=== PATIENT | female | born 1975 | race Caucasian/White ===

== ENCOUNTER 2022-04-25 15:01 | Outpatient (RCR) | payer OTHER, SELFPAY | END 2022-06-21 08:55 | disposition home or self-care (01) | PROVIDERS: PCP Family Medicine; Visit Provider Family Medicine | DX: M76.62 Achilles tendinitis, left leg (principal); M76.61 Achilles tendinitis, right leg; M25.572 Pain in left ankle and joints of left foot; Z51.89 Encounter for other specified aftercare | CPT/HCPCS: 97110; 97140 ==

== ENCOUNTER 2023-01-08 10:07 | Observation (INO) | payer OTHER, SELFPAY ==
[2023-01-08] VITALS (37 sets, daily range): BP systolic 118–153; BP diastolic 72–102; PULSE 43–101; RESP 16–18; TEMP 36.6–36.9; O2SAT 94–100; BMI 26.6; BMI 27.3
--- NOTE | 2023-01-08 10:43 | ED_ITS ---
HPI - General Adult General Time Seen by Provider: 10:44 Date Seen: 01/08/23 Chief complaint: High Blood Pressure Stated complaint: High BP Time Seen by Provider: 01/08/23 10:43 Source: patient and RN notes reviewed Mode of arrival: ambulatory Limitations: no limitations History of Present Illness HPI narrative: Patient is a 47-year-old female coming in with sense of a flutter or irregular heartbeat in her chest starting this morning. She went to emergency room yesterday, was started on antibiotics and oxymetazoline own for a sinus infection. She did get prednisone but has not started it. She was blowing out copious nasal secretions, has been feeling ill since the end of November. At some point she had a negative strep, COVID, influenza swab, probably closer to the end of November per her report. She has felt hot and chilled but no documented temperature. She took 1 cefuroxime last night, 2 doses of the oxymetazoline nasal spray yesterday. This morning when she woke up she still was not feeling good, extremely fatigued. She tried to lay back down after calling in to work sick today and felt the strange sensation in her chest. She states she just isn't feeling right, does have some headache with her symptoms. She states no blood work or imaging was done yesterday. She does not drink any excessive caffeine. She states she was told to quit coffee with her sore throat symptoms earlier, will maybe have an occasional diet Mountain Dew. She is hungry right now but notes overall her appetite is down and off. Has been drinking water. Related Data Home Medications Medication Instructions Recorded Confirmed metoprolol tartrate 50 mg tablet 25 mg PO BID 12/10/22 01/08/23 aspirin 81 mg tablet,delayed 81 mg PO DAILY 01/08/23 01/08/23 release (Adult Aspirin Regimen) hydrochlorothiazide 25 mg tablet 25 mg PO DAILY 01/08/23 01/08/23 losartan 50 mg tablet 50 mg PO BID 01/08/23 01/08/23 multivitamin (Daily Multi-Vitamin 1 tab PO DAILY 01/08/23 01/08/23 tablet) Previous Rx's Medication Instructions Recorded cefuroxime axetil 500 mg tablet 500 mg PO BID 10 days #20 tabs 01/07/23 fluticasone propionate 50 1 spray intranasal DAILY #1 g 01/09/23 mcg/actuation nasal spray,suspension nicotine (polacrilex) 2 mg gum 2 mg buccal Q1H PRN #20 ea 01/09/23 sodium chloride 0.65 % nasal spray 1 spray intranasal QID #1 mL 01/09/23 aerosol (Deep Sea Nasal) Allergies Allergy/AdvReac Type Severity Reaction Status Date / Time No Known Drug Allergies Allergy Verified 01/07/23 13:40 Review of Systems Status of ROS: Reports: 10 or more systems reviewed and unremarkable except as noted in History and below [facility] Medical History (Updated 01/09/23 @ 10:10 by Herminia Perez MD) Degenerative disc disease, cervical ?M50.30 - Other cervical disc degeneration, unspecified cervical region (ICD- 10) Essential hypertension ?I10 - Essential (primary) hypertension (ICD-10) Fatty liver ?K76.0 - Fatty (change of) liver, not elsewhere classified (ICD-10) Tobacco use disorder ?F17.200 - Nicotine dependence, unspecified, uncomplicated (ICD-10) Surgical History (Updated 01/08/23 @ 14:14 by Herminia Perez MD) H/O breast augmentation ?Z98.82 - Breast implant status (ICD-10) H/O tubal ligation ?Z98.51 - Tubal ligation status (ICD-10) H/O: hysterectomy ?Z90.710 - Acquired absence of both cervix and uterus (ICD-10) History of appendectomy ?Z90.49 - Acquired absence of other specified parts of digestive tract (ICD- 10) History of section ?Z98.891 - History of uterine scar from previous surgery (ICD-10) History of endometrial ablation ?Z98.890 - Other specified postprocedural states (ICD-10) History of laparoscopic cholecystectomy ?Z90.49 - Acquired absence of other specified parts of digestive tract (ICD- 10) Social History Highest level of school completed/degree received: Associate degree: occupational, technical, vocational program Smoking Status: Current every day smoker Second hand tobacco smoke exposure: No How often do you have a drink containing alcohol: never How often do you have six or more drinks on one occasion: Never AUDIT-C Alcohol total score: 0 Non-prescribed substance use: denies use Caffeine: Yes (limited) service: No Exam Const: Vital Signs, click to edit/add: Vital Signs - 24 hr 01/08/23 10:13 01/08/23 10:30 01/08/23 10:32 Temperature 98.5 F Pulse Rate 68 72 Pulse Rate [Right Pulse Oximeter] 79 Respiratory Rate 18 Blood Pressure 127/80 Blood Pressure [Ri ght Upper Arm] 153/102 H Pulse Oximetry 96 97 98 Oxygen Delivery Me thod Room Air 01/08/23 10:45 01/08/23 11:00 01/08/23 11:03 Temperature Pulse Rate 67 77 78 Pulse Rate [Right Pulse Oximeter] Respiratory Rate Blood Pressure 129/91 H Blood Pressure [Ri ght Upper Arm] Pulse Oximetry 96 98 95 Oxygen Delivery Me thod 01/08/23 11:15 01/08/23 10:52 01/08/23 11:30 Temperature Pulse Rate 70 65 Pulse Rate [Right Pulse Oximeter] Respiratory Rate Blood Pressure Blood Pressure [Ri ght Upper Arm] Pulse Oximetry 98 97 96 Oxygen Delivery Me thod 01/08/23 11:33 01/08/23 11:34 01/08/23 11:46 Temperature Pulse Rate 67 71 62 Pulse Rate [Right Pulse Oximeter] Respiratory Rate Blood Pressure 130/84 Blood Pressure [Ri ght Upper Arm] Pulse Oximetry 97 97 97 Oxygen Delivery Me thod 01/08/23 12:00 01/08/23 12:02 01/08/23 12:15 Temperature Pulse Rate 66 58 L 79 Pulse Rate [Right Pulse Oximeter] Respiratory Rate Blood Pressure 142/72 H Blood Pressure [Ri ght Upper Arm] Pulse Oximetry 98 100 97 Oxygen Delivery Me thod Documenting provider has reviewed patient's vital signs: yes Common normals: no apparent distress, average body habitus, oriented x3, no limitations, healthy appearing and alert General appearance: cooperative, c omfortable, well kempt and well developed Other: Overall this 47-year-old female has love skin, no rash. She is in no distress but just generally looks like she does not feel the best. HENMT: Common normals: normocephalic, head/scalp atraumatic, hearing grossly normal bilaterally, external nose normal, moist oral mucous membranes, oropharynx normal, dentition normal and gingiva normal Head and scalp: normocephalic and atraumatic Nose: external nose normal Eye: Common normals: PERRL, EOMs intact bilaterally, conjunctivae normal and no scleral icterus Conjunctiva: conjunctiva(e) normal Pupil: PERRL Neck & C-Spine: Common normals: full ROM, no lymphadenopathy, supple, no meningeal signs, no JVD and thyroid normal Thyroid: thyroid normal Resp: Common normals: normal respiratory effort, no retractions, no use of accessory muscles and clear to auscultation bilaterally Auscultation: clear to auscultation bilaterally Cardio: Common normals: no JVD, regular rate, regular rhythm, S1 normal heart sound, S2 normal heart sound, no gallops, no clicks and no murmurs Rate: regular rate Rhythm: regular rhythm Heart sounds: S1 normal and S2 normal GI: Common normals: Normal to inspection, nondistended, normoactive bowel sounds present, soft to palpation, non-tender, no hepatosplenomegaly and no masses Palpation: soft and no hepatosplenomegaly Neuro: Common normals: oriented x3 Sensorium/orientation: alert Meningeal signs: no meningeal signs Psych: Appearance: well kempt Course Course Hospital Course: Her initial EKG obtained by nursing staff on arrival is looking reassuring. I see no evidence of any ectopy when I am talking to her but nursing staff did note that they saw some PVCs on the monitor. Will continue her on cardiac monitoring and pulse oximetry. Will get appropriate labs, portable chest x-ray as well as head CT. I do wonder if the oxymetazoline could be contributing to PVCs. Have recommended at this point she refrain from using this further. Any prolonged use of this nasal spray can cause nasal congestion rebound phenomenon. Reevaluation(s) Reevaluation #1: Nursing staff reported to me that patient was complaining of feeling like she was short of breath, having difficulty breathing. Vitals were stable, O2 sats were 100%. I went in to talk to her after that, saw 2 isolated PVCs on the monitor. Then she went into bigeminy for about maybe 3-5 beats looking at the monitor. She was quite symptomatic with it. Made her feel tearful. Reviewed with her the pansinusitis on her head CT. Reviewed the normal inflammatory markers C reactive protein in the normal CBC. Her liver enzymes are mildly elevated with the ALT being higher than the AST. She had 2 drinks last night, maybe some on Friday but states she is not drinking excessively. We will ultrasound her liver. She was in [place] early December, had these respiratory symptoms prior to going there. Has not had any GI her diarrheal illness. Her gallbladder is gone. As for the PVCs, she is on metoprolol. I am not sure if it is the oxymetazoline that did this or if it is general illness. Could try to increase her beta-janee to suppress this for the time being while she treats the sinusitis. If she has ongoing symptoms, outpatient cardiac echo and Holter monitor or ZIO patch would be recommended. Time: 12:24 Reevaluation #2: Reviewed my conversation with the grip wrapper with patient. She understands she needs to have a screening COVID done. She will getting 25 mg immediate release oral metoprolol, have ordered 2 g IV magnesium. Time: 13:21 Consultations Consultation #1: Spoke with Dr. Edwards from [facility] on-call. Reviewed the significant symptomatic burden of bigeminy this patient is having. Her magnesium is normal at 1.7 but low for potential cardiac arrhythmias. He did recommend replacing it. We discussed using oral metoprolol to try to suppress this. If she was continuing to have symptomatic PVCs or bigeminy, call back to Cardiology for further recommendations. He stated they were rarely use antiarrhythmics but sometimes or force 2. We will need to collect a COVID on her. He did recommend getting an echo and hospitalizing patient for treatment. Note the preliminary on her liver is that it is fatty liver. Time: 13:18 Consultation #2: Have reviewed with the hospitalist, she accepts. Time: 13:48 Vital Signs Vital signs: Initial Vital Signs Temperature 98.5 F 01/08/23 10:13 Temperature Source Temporal Artery Scan 01/08/23 10:13 Pulse Rate 79 01/08/23 10:13 Respiratory Rate 18 01/08/23 10:13 Blood Pressure 153/102 H 01/08/23 10:13 Blood Pressure Mean 119 01/08/23 10:13 Blood Pressure Position Sitting 01/08/23 10:13 Pulse Oximetry 96 01/08/23 10:13 Oxygen Delivery Method Room Air 01/08/23 10:13 Vital Signs Temperature 98.5 F 01/08/23 10:13 Pulse Rate 79 01/08/23 10:13 Respiratory Rate 18 01/08/23 10:13 Blood Pressure 153/102 H 01/08/23 10:13 Pulse Oximetry 96 01/08/23 10:13 Oxygen Delivery Method Room Air 01/08/23 10:13 Temperature 97.6 F 01/09/23 07:00 Pulse Rate 62 01/09/23 07:39 Respiratory Rate 16 01/09/23 09:00 Blood Pressure 135/89 01/09/23 07:00 Pulse Oximetry 95 01/09/23 09:00 Oxygen Delivery Method Room Air 01/09/23 09:00 Medical Decision Making Lab Data Labs: Lab Results 01/08/23 01/08/23 01/08/23 Range/Units 10:53 11:21 13:12 WBC 8.13 (4.50-11.00) K/uL RBC 4.19 (4.00-5.20) m/uL Hgb 13.3 (12.0-16.0) gm/dL Hct 38.6 (33.0-51.0) % MCV 92 (80-100) fL MCH 32 (26-34) pg MCHC 35 (32-36) gm/dL RDW Coeff of Adilson 11.8 (11.5-15.5) % Plt Count 248 (140-440) K/uL Neut % (Auto) 58.9 (42.0-72.0) % Lymph % (Auto) 28.7 (20-44) % Glades % (Auto) 10.7 (0.0-11.0) % Eos % (Auto) 1.2 (0.0-7.0) % Baso % (Auto) 0.4 (0.0-3.0) % Neut # (Auto) 4.79 (1.7-7.0) K/uL Lymph # (Auto) 2.33 (0.90-2.90) K/uL Glades # (Auto) 0.90 (0.00-0.90) K/UL Eos # (Auto) 0.10 (0.00-0.50) K/uL Baso # (Auto) 0.03 (0.00-0.30) K/uL ESR 25 H (2-20) mm/hr Sodium 135 (135-149) mmol/L Potassium 4.1 (3.6-5.1) mmol/L Chloride 97 (96-114) mmol/L Carbon Dioxide 32 (20-32) mmol/L BUN 18 (5-24) mg/dL Creatinine 0.8 (0.5-1.5) mg/dL Estimated Creat Clear 76.54 Estimated GFR 90 ml/min Glucose 107 (60-115) mg/dL Hemoglobin A1c 5.44 (0-5.6) % Calcium 9.8 (8.4-10.6) mg/dL Magnesium 1.7 (1.5-2.6) mg/dL Total Bilirubin 1.6 H (0.1-1.5) mg/dL GGT 134 H (8-55) U/L AST 97 H (12-35) U/L ALT 135 H (4-35) U/L Alkaline Phosphatase 73 (40-150) U/L C-Reactive Protein < 0.5 L (0.5-1.0) mg/dL NT-Pro-B Natriuret Pep 48 pg/mL Total Protein 8.5 H (6.0-8.3) g/dL Albumin 4.7 (3.3-5.0) g/dL SARS-CoV-2 (PCR) (Negative) POC Troponin I 0.00 L 0.00 L (0.01-0.04) ng/ml 01/08/23 Range/Units 13:21 WBC (4.50-11.00) K/uL RBC (4.00-5.20) m/uL Hgb (12.0-16.0) gm/dL Hct (33.0-51.0) % MCV (80-100) fL MCH (26-34) pg MCHC (32-36) gm/dL RDW Coeff of Adilson (11.5-15.5) % Plt Count (140-440) K/uL Neut % (Auto) (42.0-72.0) % Lymph % (Auto) (20-44) % Glades % (Auto) (0.0-11.0) % Eos % (Auto) (0.0-7.0) % Baso % (Auto) (0.0-3.0) % Neut # (Auto) (1.7-7.0) K/uL Lymph # (Auto) (0.90-2.90) K/uL Glades # (Auto) (0.00-0.90) K/UL Eos # (Auto) (0.00-0.50) K/uL Baso # (Auto) (0.00-0.30) K/uL ESR (2-20) mm/hr Sodium (135-149) mmol/L Potassium (3.6-5.1) mmol/L Chloride (96-114) mmol/L Carbon Dioxide (20-32) mmol/L BUN (5-24) mg/dL Creatinine (0.5-1.5) mg/dL Estimated Creat Clear Estimated GFR ml/min Glucose (60-115) mg/dL Hemoglobin A1c (0-5.6) % Calcium (8.4-10.6) mg/dL Magnesium (1.5-2.6) mg/dL Total Bilirubin (0.1-1.5) mg/dL GGT (8-55) U/L AST (12-35) U/L ALT (4-35) U/L Alkaline Phosphatase (40-150) U/L C-Reactive Protein (0.5-1.0) mg/dL NT-Pro-B Natriuret Pep pg/mL Total Protein (6.0-8.3) g/dL Albumin (3.3-5.0) g/dL SARS-CoV-2 (PCR) Negative SARS-CoV-2 (Negative) POC Troponin I (0.01-0.04) ng/ml Imaging Data CT scan - head: Attestation: I have reviewed the pertinent imaging results. My impression: On my review of her head CT, do see some mucosal thickening in sinuses. Will await Radiology over-read. Radiologist's impression: Patient: MARLON GAMEZ Facility:?[facility] Patient ID:?[id number] Site Patient ID:?[id number]. Site :?1975 Study:?CT Head WO-01/08/2023 11:26:54 AM Ordering Physician:?Gabbi Weems Final Report: Indication: Headache Technique: Noncontrast head CT Comparison: No comparison Findings: Axial noncontrast images through the brain parenchyma demonstrates no acute intracranial hemorrhage or mass. No midline shift no abnormal extra-axial air or fluid collections are seen. Mucosal thickening both maxillary sinuses with fluid in the left maxillary sinus partial opacification ethmoid air cells opacification with some fluid in the sphenoid sinuses mild mucosal thickening of the frontal sinuses as well the mastoid air cells appear clear. Skull and scalp are unremarkable. Impression: No acute intracranial hemorrhage or mass. Pansinus disease. Please note that all CT scans at this facility use dose modulation, iterative reconstruction, and/or weight-based dosing when appropriate to reduce radiation dose to as low as reasonably achievable. Dictated by Allyn Sinclair MD @ 01/08/2023 11:33:05 AM (Electronic Signature) Chest x-ray: Attestation: I have reviewed the pertinent imaging results. My impression: No acute pathology on my preliminary review of this chest x-ray. Radiologist's impression: Patient: MARLON GAMEZ Facility:?[facility] Patient ID:?[id number] Site Patient ID:?[id number]. Site :?1975 Study:?XRay Chest 1 view-01/08/2023 11:20:41 AM Ordering Physician:?Gabbi Weems Final Report: INDICATION: Palpitations TECHNIQUE: Single-view chest. FINDINGS: The lungs are clear. The heart, mediastinum and pulmonary vessels are of normal size. There is no evidence of pleural disease. Old left clavicular fracture IMPRESSION: Negative chest. Dictated by Allyn Sinclair MD @ 01/08/2023 11:25:50 AM (Electronic Signature) US - abdomen: Attestation: I have reviewed the pertinent imaging results. Radiologist's impression: Patient: MARLON GAMEZ Facility:?[facility] Patient ID:?[id number] Site Patient ID:?[id number]. Site :?1975 Study:?US Abdomen -01/08/2023 1:12:27 PM Ordering Physician:Luis Manuel Weems Final Report: CLINICAL HISTORY: Abnormal liver enzymes FINDINGS: Increased echogenicity of liver. The pancreas appears normal. There is no evidence of ascites. Cholecystectomy. The common bile duct measures 6 mm in size within the bud hepatis. Right kidney measures 12.2 centimeters and unremarkable IMPRESSION: Fatty liver. Dictated by Allyn Sinclair MD @ 01/08/2023 1:38:59 PM (Electronic Signature) ECG Data Attestation: I personally reviewed and interpreted this ECG as follows: (Normal sinus rhythm, 69 beats per minute. No ectopy, no ischemic change. QT corrected 430 milliseconds.) Prior ECG tracings: not available for review Interpretation: Three subsequent EKGs obtained around 1231 and we did capture a full EKG a bigeminy, a 2nd EKG with partial bigeminy on that EKG and a 3rd 1 with just 1 beat of bigeminy. Critical Care Time Critical Care Time Critical Care Time: No Discharge Plan Discharge Clinical Impression: Acute pansinusitis, Frequent PVCs, Bigeminy Patient Disposition: Admitted As Inpatient Condition: Unchanged Activity Level: Activity as Tolerated Discharge Diet: Heart Healthy (2 gm sodium, low fat)
--- NOTE | 2023-01-08 10:52 | CRLHL7_ITS ---
For Patients: As a result of the Century Cures Act, medical imaging exams and procedure reports are released immediately into your electronic medical record. You may view this report before your referring provider. If you have questions, please contact your health care provider. INDICATION: Palpitations TECHNIQUE: Single-view chest. FINDINGS: The lungs are clear. The heart, mediastinum and pulmonary vessels are of normal size. There is no evidence of pleural disease. Old left clavicular fracture IMPRESSION: Negative chest. Dictated by Allyn Sinclair MD @ 01/08/2023 11:25:50 AM (Electronically Signed)
--- NOTE | 2023-01-08 10:52 | CRLHL7_ITS ---
For Patients: As a result of the Century Cures Act, medical imaging exams and procedure reports are released immediately into your electronic medical record. You may view this report before your referring provider. If you have questions, please contact your health care provider. Indication: Headache Technique: Noncontrast head CT Comparison: No comparison Findings: Axial noncontrast images through the brain parenchyma demonstrates no acute intracranial hemorrhage or mass. No midline shift no abnormal extra-axial air or fluid collections are seen. Mucosal thickening both maxillary sinuses with fluid in the left maxillary sinus partial opacification ethmoid air cells opacification with some fluid in the sphenoid sinuses mild mucosal thickening of the frontal sinuses as well the mastoid air cells appear clear. Skull and scalp are unremarkable. Impression: No acute intracranial hemorrhage or mass. Pansinus disease. Please note that all CT scans at this facility use dose modulation, iterative reconstruction, and/or weight-based dosing when appropriate to reduce radiation dose to as low as reasonably achievable. Dictated by Allyn Sinclair MD @ 01/08/2023 11:33:05 AM (Electronically Signed)
[2023-01-08 11:29] LABS: Basophils Absolute Auto 0.03 K/uL (0.00-0.30); Basophils Percent Auto 0.4 % (0.0-3.0); Eosinophils Percent Auto 1.2 % (0.0-7.0); Hematocrit 38.6 % (33.0-51.0); Hemoglobin* 13.3 gm/dL (12.0-16.0); Immature Granulocytes Abs Auto 0.01 K/uL (0.00-0.30); Immature Granulocytes Pct Auto 0.1 %; Lymphocytes Absolute Auto 2.33 K/uL (0.90-2.90); Lymphocytes Percent Auto 28.7 % (20-44); Mean Corpuscular HGB Conc 35 gm/dL (32-36); Mean Corpuscular Hemoglobin 32 pg (26-34); Mean Corpuscular Volume 92 fL (80-100); Monocytes Percent Auto 10.7 % (0.0-11.0); Neutrophils Absolute Auto 4.79 K/uL (1.7-7.0); Neutrophils Percent Auto 58.9 % (42.0-72.0); Platelet Count* 248 K/uL (140-440); RDW Coefficient of Variation % 11.8 % (11.5-15.5); Red Blood Count 4.19 m/uL (4.00-5.20); White Blood Count* 8.13 K/uL (4.50-11.00)
[2023-01-08 11:38] LABS: Slide Review Reflex No
[2023-01-08 11:43] LABS: Albumin* 4.7 g/dL (3.3-5.0); Chloride* 97 mmol/L (96-114); Sodium* 135 mmol/L (135-149)
[2023-01-08 11:44] LABS: Potassium* 4.1 mmol/L (3.6-5.1)
[2023-01-08 11:46] LABS: Creatinine* 0.8 mg/dL (0.5-1.5); Est. Creatinine Clearance* 76.54; Estimated Glomerular Filt Rate 90 ml/min
[2023-01-08 11:47] LABS: Alanine Aminotransferase* 135 U/L (4-35); Alkaline Phosphatase* 73 U/L (40-150); Aspartate Amino Transferase* 97 U/L (12-35); Bilirubin Total* 1.6 mg/dL (0.1-1.5); Blood Urea Nitrogen* 18 mg/dL (5-24); Calcium* 9.8 mg/dL (8.4-10.6); Carbon Dioxide* 32 mmol/L (20-32); Glucose* 107 mg/dL (60-115); Magnesium* 1.7 mg/dL (1.5-2.6); Total Protein* 8.5 g/dL (6.0-8.3)
[2023-01-08 11:52] LABS: C Reactive Protein* < 0.5 mg/dL (0.5-1.0)
[2023-01-08 11:57] LABS: NT Pro B Type NatriureticPept* 48 pg/mL
--- NOTE | 2023-01-08 12:22 | CRLHL7_ITS ---
For Patients: As a result of the Century Cures Act, medical imaging exams and procedure reports are released immediately into your electronic medical record. You may view this report before your referring provider. If you have questions, please contact your health care provider. CLINICAL HISTORY: Abnormal liver enzymes FINDINGS: Increased echogenicity of liver. The pancreas appears normal. There is no evidence of ascites. Cholecystectomy. The common bile duct measures 6 mm in size within the bud hepatis. Right kidney measures 12.2 centimeters and unremarkable IMPRESSION: Fatty liver. Dictated by Allyn Sinclair MD @ 01/08/2023 1:38:59 PM (Electronically Signed)
[2023-01-08] MEDS: METOPROLOL TARTRATE 25 MG TABLET PO ×2 (14:05→21:51)
[2023-01-08] MEDS: MAGNESIUM IV 2 GM/50 ML PIGGYBACK IVPB (14:08)
--- NOTE | 2023-01-08 14:08 | ED.NURSE ---
Unable to chart medications at time of administration r/t internet down. Meds/doses double checked with JHOAN Caceres.
[2023-01-08 14:17] LABS: SARS PCR* Negative SARS-CoV-2 (Negative)
--- NOTE | 2023-01-08 14:20 | P.IMHP_ITS ---
Hospitalist- H&P: HPI History of Present Illness Date Seen: 01/08/23 Chief complaint: High BP Narrative: ADMISSION HISTORY AND PHYSICAL - HOSPITALIST Chief Complaint: Presyncopal, palpitations, chronic head cold HPI: 47-year-old female with a history daily smoking and hypertension presents to the ER this morning with a sense of presyncope, a falling feeling, palpitations in her chest. She trouble describing her symptoms but she stated that she just did not feel right. She has been struggling with recurrent and chronic upper respiratory infection since September. She just started her 2nd antibiotic yesterday. She was also placed on prednisone. She smokes less than a pack a day. She drinks coffee some mornings. She denies significant stress. She likes her job. She is . She denies any drug use, diet pill as, nutritional supplements other than a multivitamin. She does not have a regular exercise pattern but does not consider herself sedentary. ER COURSE: Placed telemetry, PVCs few runs of bigeminy noted Labs obtained CODE STATUS: FULL CODE EMERGENCY CONTACT PLAN: , Yunior. I've updated the PFSH, medications and allergies in the [facility] tabs. INVESTIGATIONS: LABS/MICRO/ECG/IMAGING Afebrile upon arrival Blood pressure elevated 144/83, 153/102 Pulse 60s and 70s Respiratory rate 18, unlabored Pulse ox 90s, room air 72.5 kilos CBC is unremarkable Chemistries are essentially unremarkable A mild elevation in her total bilirubin is noted at 1.6, AST and ALT are 97/135 Alk-phos is normal CRP is less than 0.5 BNP 48, troponin negative x2 checks in the ED SARS-CoV-2 negative EKG - PVCs and a few runs of bigemny Ultrasound of right upper quadrant Fatty liver please note history of laparoscopic cholecystectomy Chest x-ray Negative chest Head CT Pansinusitis REVIEW OF SYSTEMS: 12-point ROS completed with patient and negative unless otherwise stated in HPI or below. CONSTITUTIONAL: Conversive, good historian. A/O. Knows setting and context. VITAL SIGNS: see record. HEENT: Normocephalic, atraumatic. PERRL, EOMI, conjunctivae pink, no scleral icterus. Ears and nose externally normal. Pharynx normal. NECK: No JVD. No carotid bruit, no thyromegaly, no adenopathy. CHEST: Clear to auscultation bilaterally HEART: S1 and S2 normal. No harsh murmurs. Edema MUSCULOSKELETAL: No gross joint deformity or swelling. NEURO: Cranial nerves intact. Grossly intact. No asymmetric findings. SKIN: No rashes, petechiae, concerning changes PSYCHIATRIC: Euthymic. ADMIT TO MEDSURG: FLOOR CARE DVT: SCDs, ambulation GI: PO intake Time spent: 70 minutes examining patient, conferring with family and patient, care staff, developing care plan [facility] Medical History (Updated 01/08/23 @ 15:40 by Herminia Perez MD) Degenerative disc disease, cervical ?M50.30 - Other cervical disc degeneration, unspecified cervical region (ICD- 10) Essential hypertension ?I10 - Essential (primary) hypertension (ICD-10) Tobacco use disorder ?F17.200 - Nicotine dependence, unspecified, uncomplicated (ICD-10) Surgical History (Updated 01/08/23 @ 14:14 by Herminia Perez MD) H/O breast augmentation ?Z98.82 - Breast implant status (ICD-10) H/O tubal ligation ?Z98.51 - Tubal ligation status (ICD-10) H/O: hysterectomy ?Z90.710 - Acquired absence of both cervix and uterus (ICD-10) History of appendectomy ?Z90.49 - Acquired absence of other specified parts of digestive tract (ICD- 10) History of section ?Z98.891 - History of uterine scar from previous surgery (ICD-10) History of endometrial ablation ?Z98.890 - Other specified postprocedural states (ICD-10) History of laparoscopic cholecystectomy ?Z90.49 - Acquired absence of other specified parts of digestive tract (ICD- 10) Social History Highest level of school completed/degree received: Associate degree: occupational, technical, vocational program Smoking Status: Current every day smoker Second hand tobacco smoke exposure: No How often do you have a drink containing alcohol: never How often do you have six or more drinks on one occasion: Never AUDIT-C Alcohol total score: 0 Non-prescribed substance use: denies use Caffeine: Yes (limited) service: No Meds Home Medications and Allergies Home Medications Medication Instructions Recorded Confirmed Type metoprolol tartrate 50 mg tablet 25 mg PO BID 12/10/22 01/08/23 History aspirin 81 mg tablet,delayed 81 mg PO DAILY 01/08/23 01/08/23 History release (Adult Aspirin Regimen) hydrochlorothiazide 25 mg tablet 25 mg PO DAILY 01/08/23 01/08/23 History losartan 50 mg tablet 50 mg PO BID 01/08/23 01/08/23 History multivitamin (Daily Multi-Vitamin 1 tab PO DAILY 01/08/23 01/08/23 History tablet) Allergies Allergy/AdvReac Type Severity Reaction Status Date / Time No Known Drug Allergies Allergy Verified 01/07/23 13:40 Exam Const: Vital Signs, click to edit/add: Vital Signs - 24 hr 01/08/23 10:13 01/08/23 10:30 01/08/23 10:32 Temperature 98.5 F Pulse Rate 68 72 Pulse Rate [Right Pulse Oximeter] 79 Respiratory Rate 18 Blood Pressure 127/80 Blood Pressure [Ri ght Upper Arm] 153/102 H Pulse Oximetry 96 97 98 [facility] 01/08/23 10:45 01/08/23 11:00 01/08/23 11:03 Temperature Pulse Rate 67 77 78 Pulse Rate [Right Pulse Oximeter] Respiratory Rate Blood Pressure 129/91 H Blood Pressure [Ri ght Upper Arm] Pulse Oximetry 96 98 95 [facility] 01/08/23 11:15 01/08/23 10:52 01/08/23 11:30 Temperature Pulse Rate 70 65 Pulse Rate [Right Pulse Oximeter] Respiratory Rate Blood Pressure Blood Pressure [Ri ght Upper Arm] Pulse Oximetry 98 97 96 [facility] 01/08/23 11:33 01/08/23 11:34 01/08/23 11:46 Temperature Pulse Rate 67 71 62 Pulse Rate [Right Pulse Oximeter] Respiratory Rate Blood Pressure 130/84 Blood Pressure [Ri ght Upper Arm] Pulse Oximetry 97 97 97 Oxygen Delivery Me thod 01/08/23 12:00 01/08/23 12:02 01/08/23 12:15 Temperature Pulse Rate 66 58 L 79 Pulse Rate [Right Pulse Oximeter] Respiratory Rate Blood Pressure 142/72 H Blood Pressure [Ri ght Upper Arm] Pulse Oximetry 98 100 97 [facility] 01/08/23 12:30 01/08/23 12:33 01/08/23 12:51 Temperature Pulse Rate 43 L 69 66 Pulse Rate [Right Pulse Oximeter] Respiratory Rate Blood Pressure 135/89 Blood Pressure [Ri ght Upper Arm] Pulse Oximetry 100 99 94 [facility] 01/08/23 13:00 01/08/23 13:02 01/08/23 13:15 Temperature Pulse Rate 63 61 68 Pulse Rate [Right Pulse Oximeter] Respiratory Rate Blood Pressure 118/92 H Blood Pressure [Ri ght Upper Arm] Pulse Oximetry 97 99 98 [facility] 01/08/23 13:30 01/08/23 13:36 01/08/23 13:45 Temperature Pulse Rate 72 75 65 Pulse Rate [Right Pulse Oximeter] Respiratory Rate Blood Pressure Blood Pressure [Ri ght Upper Arm] Pulse Oximetry 97 96 96 [facility] 01/08/23 14:00 01/08/23 14:03 01/08/23 14:15 Temperature Pulse Rate 73 72 61 Pulse Rate [Right Pulse Oximeter] Respiratory Rate Blood Pressure 137/93 H Blood Pressure [Ri ght Upper Arm] Pulse Oximetry 96 96 96 Oxygen Delivery [facility] Hospitalist - H&P: Result Labs Labs: Short CBC 01/08/23 Range/Units 11:21 WBC 8.13 (4.50-11.00) K/uL Hgb 13.3 (12.0-16.0) gm/dL Hct 38.6 (33.0-51.0) % Plt Count 248 (140-440) K/uL BMP 01/08/23 11:21 Sodium 135 Potassium 4.1 Chloride 97 Carbon Dioxide 32 BUN 18 Creatinine 0.8 Glucose 107 Calcium 9.8 Liver Function 01/08/23 Range/Units 11:21 Total Bilirubin 1.6 H (0.1-1.5) mg/dL AST 97 H (12-35) U/L ALT 135 H (4-35) U/L Alkaline Phosphatase 73 (40-150) U/L Albumin 4.7 (3.3-5.0) g/dL Assessment and Plan Assessment and plan (1) Bigeminy: Problem comment: -replace magnesium, hold prednisone, monitor on telemetry. Place Holter monitor. -echocardiogram this afternoon -follow-up outpatient cards likely at discharge Status: Acute (2) Frequent PVCs: Problem comment: -longstanding, noted on Holter in 2013. Checking drug screen, thyroid, electrolyte. Contribute with additional doses of her baseline metoprolol. Status: Acute (3) Acute pansinusitis: Problem comment: Continue cefuroxime -adding nasal saline, nasal steroid and Afrin -outpatient ENT consult -holding prednisone Status: Acute (4) Tobacco use disorder: Problem comment: Nicotrol and gum p.r.n. Status: Acute (5) Essential hypertension: Problem comment: Continue home meds, metoprolol as needed. Status: Acute
[2023-01-08 15:19] LABS: Gamma Glutamyl Transpeptidase* 134 U/L (8-55)
[2023-01-08 15:34] LABS: Amphetamine Screen Urine Negative (Negative); Barbiturate Screen Urine Negative (Negative); Benzodiazepines Screen Urine Negative (Negative); Cannabinoid Screen Urine Negative (Negative); Cocaine Screen Urine Negative (Negative); Methadone Screen Urine Negative (Negative); Methamphetamines Screen Urine Negative (Negative); Opiate Screen Urine Negative (Negative); Oxycodone Screen Urine Negative (Negative); Phencyclidine Screen Urine Negative (Negative); Tricyclic Antidepressant Urine Negative (Negative)
[2023-01-08] MEDS: ACETAMINOPHEN 325 MG TABLET PO (15:40)
[2023-01-08] MEDS: SODIUM CHLORIDE 0.9 % (FLUSH) 10 ML SYRINGE 5 ML IVF ×2 (15:42→20:47)
[2023-01-08 15:44] LABS: Hemoglobin A1C* 5.44 % (0-5.6)
[2023-01-08 15:56] LABS: Erythrocyte SedimentationRate* 25 mm/hr (2-20)
[2023-01-08 16:10] LABS: Appearance Urine Clear (Clear); Bilirubin Urine Negative (Negative); Blood Urine Trace-intact (Negative); Color Urine Yellow (Yellow); Glucose Urine Negative (Negative); Ketones Urine Negative (Negative); Leukocyte Esterase Urine Negative (Negative); Nitrite Urine Negative (Negative); Protein Urine Negative (Negative); Urobilinogen Urine 0.2 (0.2-1.0)
[2023-01-08 16:19] LABS: Bacteria Urine Few; RBC Urine 0-2 (0-2); Squamous Epithelial Cell Urine Few (None-Few); WBC Urine 0-2 (0-5)
[2023-01-08] MEDS: SODIUM CHLORIDE NASAL SPRAY 1 SPRAY NOSTRIL-B ×2 (17:30→20:47)
--- NOTE | 2023-01-08 18:18 | PC.NURSE ---
Pt admit from ED this afternoon. Pt is alert and oriented, pleasant and compliant. Vitals stable, pt denies chest pain and SOB. 7/10 pain to sinuses for known sinus infection, PRN Tylenol admin pt states nothing has really been helpful, started on nasal spray this evening, continuing on antibiotic. IV to R arm, patent and flushed after Mg finished infusing. Pt had shower this evening prior to Holter monitor application. Tele reading NSR, occasional PVC noted this evening. Pt resting in bed, 'Carlos' at bedside. Ate 100% of dinner, pt stated she has not had the best appetite recently prior to admission but was surprised to eat all of her dinner tonight and tolerating. Voiding without issue, states last BM this afternoon. Orthostatic completed this evening lay 133/92 (HR 71), sit 134/89 (HR 72), stand 126/90 (HR 82). Had echo this afternoon. Pt declined need for PRN Nicotine but is aware of them being available if needed. C/o occasional cough, blows her nose and states secretions can be clear to light green. Has call light within reach and able to use appropriately.
[2023-01-08] MEDS: LOSARTAN POTASSIUM 50 MG TABLET PO (20:45)
[2023-01-08] MEDS: METOPROLOL TARTRATE 50 MG TABLET 25 MG PO (20:45)
--- NOTE | 2023-01-08 22:28 | PC.NURSE ---
Shift [id number]- Patient has occasional PVCs this evening, though she walks in hallway around 2100 and PVC frequency increases to about once every 5-6 beats, even several minutes after returning to rest. PRN metoprolol administered- see eMAR for administration. She continues to have frequent PVCs closely after administration time- noted at once every 3-4 beats for a few minutes. RN will continue to monitor for full effect of medication.
[2023-01-08] MEDS: MELATONIN 3 MG TABLET 6 MG PO (23:27)
[2023-01-09 01:56] VITALS: O2SAT 97
[2023-01-09 06:00] VITALS: BP 128/78; PULSE 61; RESP 16; TEMP 36.7; O2SAT 98
--- NOTE | 2023-01-09 06:29 | PC.NURSE ---
patient requested sleeping med, melatonin given- pt able to sleep throughout night. around 2330 pt HR on tele showed around 1-2 PVC every couple minutes, remained this way throughout night with HR around 50 during sleeping and 55-70 during awake. pt up to bathroom x1. denies any CP/SOB.
[2023-01-09 07:00] VITALS: BP 135/89; PULSE 54; PULSE 62; TEMP 36.4; O2SAT 95
[2023-01-09 07:11] LABS: Chloride* 97 mmol/L (96-114); Potassium* 4.1 mmol/L (3.6-5.1); Sodium* 136 mmol/L (135-149)
[2023-01-09 07:13] LABS: Blood Urea Nitrogen* 16 mg/dL (5-24); Carbon Dioxide* 34 mmol/L (20-32); Creatinine* 0.8 mg/dL (0.5-1.5); Est. Creatinine Clearance* 76.54; Estimated Glomerular Filt Rate 90 ml/min; Gamma Glutamyl Transpeptidase* 125 U/L (8-55)
[2023-01-09 07:14] LABS: Calcium* 9.8 mg/dL (8.4-10.6); Glucose* 122 mg/dL (60-115); Magnesium* 1.9 mg/dL (1.5-2.6)
[2023-01-09 07:29] LABS: NT Pro B Type NatriureticPept* 203 pg/mL; Troponin I* < 0.01 ng/mL (0.01-0.04)
[2023-01-09 07:39] VITALS: PULSE 62
[2023-01-09 08:04] LABS: Albumin* 4.5 g/dL (3.3-5.0)
[2023-01-09 08:07] LABS: Alkaline Phosphatase* 66 U/L (40-150); Aspartate Amino Transferase* 131 U/L (12-35); Bilirubin Direct* 0.3 mg/dL (0.0-0.5); Bilirubin Total* 1.8 mg/dL (0.1-1.5); Total Protein* 8.3 g/dL (6.0-8.3)
[2023-01-09 08:08] LABS: Alanine Aminotransferase* 139 U/L (4-35)
[2023-01-09] MEDS: FLUTICASONE PROPIONATE NASAL 1 SPRAY NOSTRIL-B (08:40)
[2023-01-09] MEDS: SODIUM CHLORIDE NASAL SPRAY 1 SPRAY NOSTRIL-B (08:41)
[2023-01-09] MEDS: hydroCHLOROthiazide 25 MG TABLET PO (08:43)
[2023-01-09] MEDS: LOSARTAN POTASSIUM 50 MG TABLET PO (08:44)
[2023-01-09] MEDS: METOPROLOL TARTRATE 50 MG TABLET 25 MG PO (08:44)
[2023-01-09] MEDS: ASPIRIN 81 MG TABLET EC PO (08:44)
[2023-01-09] MEDS: MULTIVITAMIN/MINERALS 1 TABLET 1 TAB PO (08:45)
[2023-01-09] MEDS: SODIUM CHLORIDE 0.9 % (FLUSH) 10 ML SYRINGE 5 ML IVF (08:58)
[2023-01-09 09:00] VITALS: RESP 16; O2SAT 95
--- NOTE | 2023-01-09 10:07 | P.DS_ITS ---
DS: Providers Provider Date Seen: 01/09/23 Date of admission: 01/08/23 13:59 Primary care physician: Keyana Alcazar DO Admitting Clinician: Herminia Perez MD Attending Physician on discharge: Herminia Perez MD Date of Discharge: 01/09/23 DS: Diagnosis Discharge Diagnosis (1) Essential hypertension: Status: Acute Problem details: No change in medications (2) Tobacco use disorder: Status: Acute Problem details: Counseling provided. Nicotine gum sent to her pharmacy. 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 Drug screen, TSH, magnesium are all normal. -complete Holter monitor -follow-up with cardiology, consult placed (5) Bigeminy: Status: Acute Problem details: -no further evidence on telemetry -avoid caffeine, stop smoking, healthy lifestyle (6) Fatty liver: Status: Acute Problem details: noted on u/s and LFTs during hospitalization 01/02. Needs lifestyle modifications. DS: Summary Hospital Course Hospital Course: HOSPITALIST DISCHARGE SUMMARY ATTENDING PHYSICIAN: Herminia Perez MD FINAL DIAGNOSIS: PVC, symptomatic Bigeminy noted briefly Tobacco dependence Chronic hypertension Fatty liver Pansinusitis HOSPITAL FOLLOWUP ISSUES: 1. Cardiology - Holter monitor placed during admission and will run 48 hours. [facility] to read and see patient at follow-up 2. ENT - continue nasal irrigation, nasal steroid. Follow-up ENT appointment made 3. Tobacco dependence - counseling given REFERRALS WHILE ADMITTED: None REFERRALS AFTER DISCHARGE: Cardiology, ENT BRIEF HOSPITAL COURSE: Lavern is a 47-year-old with a history of chronic hypertension, tobacco de pendence. She was admitted with symptomatic PVCs and a run of bigeminy in the ED. Overnight observation was completed. No further bigeminy noted. Her PVC burden is quite high, symptomatic at times. About every 5th to 7th beat. Echocardiogram was reassuring. We replaced her magnesium which was only low normal. Her thyroid is normal. I did not change any of her chronic hypertension meds. We will have her complete a Holter monitor and follow-up with cardiology as an outpatient. Other lab surveillance was reassuring. I stressed the importance of tobacco cessation, regular low-impact exercise like walking, plenty of fruits and vegetables. SUBSTANTIVE NOTATIONS ON IMAGING, LAB, MICROBIOLOGY/PATHOLOGY STUDIES: 135/89. Pulse 62. Rest per 16. Afebrile. 95% on room air. CBC unremarkable. Chemistries are unremarkable other than a fatty liver pattern in her LFTs A1c 5.4 Drug screen negative Troponin negative Ultrasound of her abdomen -status post cholecystectomy. Fatty liver. Head CT: No acute intracranial hemorrhage or mass. Pansinus disease. Echocardiogram: Normal LV size, normal wall thickness. EF 79%. DISCHARGE MEDICATIONS: See Reconciled list - SIGNIFICANT CHANGES: No changes to hypertensive regimen Continue antibiotic as previously started Nasal saline a nasal steroid ordered REVIEW OF SYSTEMS No new chest pain or dyspnea Pain controlled No voiding difficulties Tolerating diet challenge PHYSICAL EXAM: CONSTITUTIONAL: Alert. Comfortable. VITAL SIGNS: see record. HEENT: Normocephalic, atraumatic. PERRL, EOMI, conjunctivae pink, no scleral icterus. Ears and nose externally normal. Pharynx normal. NECK: No JVD. No carotid bruit, no thyromegaly, no adenopathy. CHEST: Clear to auscultation bilaterally. HEART: S1 and S2 normal. Edema ABDOMEN: Soft, nontender. Normal bowel sounds. MUSCULOSKELETAL: No gross joint deformity or swelling. NEURO: Cranial nerves intact. Grossly intact. No asymmetric findings. SKIN: No rashes, petechiae, concerning changes PSYCHIATRIC: Mood euthymic. DISPOSITION: Home with family Time spent on discharge 37 minutes. Time spent discussing smoking cessation with patient: more than 10 minutes Status at Discharge Functional status at discharge: independent ambulation Overall status at discharge: patient is progressing back to baseline Time Spent with Patient Time attestation: Total time spent providing and/or coordinating discharge services: Time spent: Greater than 30 minutes Exam Const: Vital Signs, click to edit/add: Vital Signs - 24 hr 01/08/23 10:13 01/08/23 10:30 01/08/23 10:32 Temperature 98.5 F Pulse Rate 68 72 Pulse Rate [Left P ulse Oximeter] Pulse Rate [Right Pulse Oximeter] 79 Pulse Rate [orthos tatic lying Right Pulse Oximeter] Pulse Rate [orthos tatic sitting Righ t Pulse Oximeter] Respiratory Rate 18 Blood Pressure 127/80 Blood Pressure [Le ft Arm] Blood Pressure [Ri ght Upper Arm] 153/102 H Blood Pressure [or thostatic lying Le ft Arm] Blood Pressure [or thostatic sitting Left Arm] Blood Pressure [or thostatic standing Left Arm] Pulse Oximetry 96 97 98 Oxygen Delivery Me thod Room Air 01/08/23 10:45 01/08/23 11:00 01/08/23 11:03 Temperature Pulse Rate 67 77 78 Pulse Rate [Left P ulse Oximeter] Pulse Rate [Right Pulse Oximeter] Pulse Rate [orthos tatic lying Right Pulse Oximeter] Pulse Rate [orthos tatic sitting Righ t Pulse Oximeter] Respiratory Rate Blood Pressure 129/91 H Blood Pressure [Le ft Arm] Blood Pressure [Ri ght Upper Arm] Blood Pressure [or thostatic lying Le ft Arm] Blood Pressure [or thostatic sitting Left Arm] Blood Pressure [or thostatic standing Left Arm] Pulse Oximetry 96 98 95 Oxygen Delivery Me thod 01/08/23 11:15 01/08/23 10:52 01/08/23 11:30 Temperature Pulse Rate 70 65 Pulse Rate [Left P ulse Oximeter] Pulse Rate [Right Pulse Oximeter] Pulse Rate [orthos tatic lying Right Pulse Oximeter] Pulse Rate [orthos tatic sitting Righ t Pulse Oximeter] Respiratory Rate Blood Pressure Blood Pressure [Le ft Arm] Blood Pressure [Ri ght Upper Arm] Blood Pressure [or thostatic lying Le ft Arm] Blood Pressure [or thostatic sitting Left Arm] Blood Pressure [or thostatic standing Left Arm] Pulse Oximetry 98 97 96 Oxygen Delivery Me thod 01/08/23 11:33 01/08/23 11:34 01/08/23 11:46 Temperature Pulse Rate 67 71 62 Pulse Rate [Left P ulse Oximeter] Pulse Rate [Right Pulse Oximeter] Pulse Rate [orthos tatic lying Right Pulse Oximeter] Pulse Rate [orthos tatic sitting Righ t Pulse Oximeter] Respiratory Rate Blood Pressure 130/84 Blood Pressure [Le ft Arm] Blood Pressure [Ri ght Upper Arm] Blood Pressure [or thostatic lying Le ft Arm] Blood Pressure [or thostatic sitting Left Arm] Blood Pressure [or thostatic standing Left Arm] Pulse Oximetry 97 97 97 Oxygen Delivery Me thod 01/08/23 12:00 01/08/23 12:02 01/08/23 12:15 Temperature Pulse Rate 66 58 L 79 Pulse Rate [Left P ulse Oximeter] Pulse Rate [Right Pulse Oximeter] Pulse Rate [orthos tatic lying Right Pulse Oximeter] Pulse Rate [orthos tatic sitting Righ t Pulse Oximeter] Respiratory Rate Blood Pressure 142/72 H Blood Pressure [Le ft Arm] Blood Pressure [Ri ght Upper Arm] Blood Pressure [or thostatic lying Le ft Arm] Blood Pressure [or thostatic sitting Left Arm] Blood Pressure [or thostatic standing Left Arm] Pulse Oximetry 98 100 97 Oxygen Delivery Me thod 01/08/23 12:30 01/08/23 12:33 01/08/23 12:51 Temperature Pulse Rate 43 L 69 66 Pulse Rate [Left P ulse Oximeter] Pulse Rate [Right Pulse Oximeter] Pulse Rate [orthos tatic lying Right Pulse Oximeter] Pulse Rate [orthos tatic sitting Righ t Pulse Oximeter] Respiratory Rate Blood Pressure 135/89 Blood Pressure [Le ft Arm] Blood Pressure [Ri ght Upper Arm] Blood Pressure [or thostatic lying Le ft Arm] Blood Pressure [or thostatic sitting Left Arm] Blood Pressure [or thostatic standing Left Arm] Pulse Oximetry 100 99 94 Oxygen Delivery Me thod 01/08/23 13:00 01/08/23 13:02 01/08/23 13:15 Temperature Pulse Rate 63 61 68 Pulse Rate [Left P ulse Oximeter] Pulse Rate [Right Pulse Oximeter] Pulse Rate [orthos tatic lying Right Pulse Oximeter] Pulse Rate [orthos tatic sitting Righ t Pulse Oximeter] Respiratory Rate Blood Pressure 118/92 H Blood Pressure [Le ft Arm] Blood Pressure [Ri ght Upper Arm] Blood Pressure [or thostatic lying Le ft Arm] Blood Pressure [or thostatic sitting Left Arm] Blood Pressure [or thostatic standing Left Arm] Pulse Oximetry 97 99 98 Oxygen Delivery Me thod 01/08/23 13:30 01/08/23 13:36 01/08/23 13:45 Temperature Pulse Rate 72 75 65 Pulse Rate [Left P ulse Oximeter] Pulse Rate [Right Pulse Oximeter] Pulse Rate [orthos tatic lying Right Pulse Oximeter] Pulse Rate [orthos tatic sitting Righ t Pulse Oximeter] Respiratory Rate Blood Pressure Blood Pressure [Le ft Arm] Blood Pressure [Ri ght Upper Arm] Blood Pressure [or thostatic lying Le ft Arm] Blood Pressure [or thostatic sitting Left Arm] Blood Pressure [or thostatic standing Left Arm] Pulse Oximetry 97 96 96 Oxygen Delivery Me thod 01/08/23 14:00 01/08/23 14:03 01/08/23 14:15 Temperature Pulse Rate 73 72 61 Pulse Rate [Left P ulse Oximeter] Pulse Rate [Right Pulse Oximeter] Pulse Rate [orthos tatic lying Right Pulse Oximeter] Pulse Rate [orthos tatic sitting Righ t Pulse Oximeter] Respiratory Rate Blood Pressure 137/93 H Blood Pressure [Le ft Arm] Blood Pressure [Ri ght Upper Arm] Blood Pressure [or thostatic lying Le ft Arm] Blood Pressure [or thostatic sitting Left Arm] Blood Pressure [or thostatic standing Left Arm] Pulse Oximetry 96 96 96 Oxygen Delivery Me thod 01/08/23 14:40 01/08/23 14:40 01/08/23 14:43 Temperature 97.9 F Pulse Rate 101 H Pulse Rate [Left P ulse Oximeter] 101 H Pulse Rate [Right Pulse Oximeter] Pulse Rate [orthos tatic lying Right Pulse Oximeter] Pulse Rate [orthos tatic sitting Righ t Pulse Oximeter] Respiratory Rate 16 18 Blood Pressure Blood Pressure [Le ft Arm] Blood Pressure [Ri ght Upper Arm] Blood Pressure [or thostatic lying Le ft Arm] Blood Pressure [or thostatic sitting Left Arm] Blood Pressure [or thostatic standing Left Arm] Pulse Oximetry 97 97 Oxygen Delivery Me thod Room Air Room Air 01/08/23 14:43 01/08/23 14:43 01/08/23 15:00 Temperature 98.5 F Pulse Rate Pulse Rate [Left P ulse Oximeter] 101 H 101 H Pulse Rate [Right Pulse Oximeter] Pulse Rate [orthos tatic lying Right Pulse Oximeter] Pulse Rate [orthos tatic sitting Righ t Pulse Oximeter] Respiratory Rate 16 16 Blood Pressure Blood Pressure [Le ft Arm] 142/72 H Blood Pressure [Ri ght Upper Arm] Blood Pressure [or thostatic lying Le ft Arm] Blood Pressure [or thostatic sitting Left Arm] Blood Pressure [or thostatic standing Left Arm] Pulse Oximetry 97 97 Oxygen Delivery Me thod Room Air Room Air 01/08/23 16:03 01/08/23 17:02 01/08/23 17:30 Temperature Pulse Rate Pulse Rate [Left P ulse Oximeter] 81 Pulse Rate [Right Pulse Oximeter] 82 Pulse Rate [orthos tatic lying Right Pulse Oximeter] 71 Pulse Rate [orthos tatic sitting Righ t Pulse Oximeter] 72 Respiratory Rate 16 Blood Pressure Blood Pressure [Le ft Arm] Blood Pressure [Ri ght Upper Arm] Blood Pressure [or thostatic lying Le ft Arm] 133/92 H Blood Pressure [or thostatic sitting Left Arm] 134/89 Blood Pressure [or thostatic standing Left Arm] 126/90 H Pulse Oximetry 97 Oxygen Delivery Me thod Room Air 01/08/23 19:19 01/08/23 23:39 01/08/23 23:43 Temperature 97.9 F 98.2 F Pulse Rate Pulse Rate [Left P ulse Oximeter] 65 56 L 56 L Pulse Rate [Right Pulse Oximeter] Pulse Rate [orthos tatic lying Right Pulse Oximeter] Pulse Rate [orthos tatic sitting Righ t Pulse Oximeter] Respiratory Rate 18 16 Blood Pressure Blood Pressure [Le ft Arm] 146/102 H 125/86 Blood Pressure [Ri ght Upper Arm] Blood Pressure [or thostatic lying Le ft Arm] Blood Pressure [or thostatic sitting Left Arm] Blood Pressure [or thostatic standing Left Arm] Pulse Oximetry 94 97 Oxygen Delivery Wy thod Room Air Room Air 01/08/23 23:51 01/09/23 01:56 01/09/23 06:00 Temperature 98.1 F Pulse Rate 52 L Pulse Rate [Left P ulse Oximeter] 61 Pulse Rate [Right Pulse Oximeter] Pulse Rate [orthos tatic lying Right Pulse Oximeter] Pulse Rate [orthos tatic sitting Righ t Pulse Oximeter] Respiratory Rate 16 Blood Pressure Blood Pressure [Le ft Arm] 128/78 Blood Pressure [Ri ght Upper Arm] Blood Pressure [or thostatic lying Le ft Arm] Blood Pressure [or thostatic sitting Left Arm] Blood Pressure [or thostatic standing Left Arm] Pulse Oximetry 97 98 Oxygen Delivery Wy thod Room Air Room Air 01/09/23 07:00 01/09/23 07:00 01/09/23 07:39 Temperature 97.6 F Pulse Rate 54 L Pulse Rate [Left P ulse Oximeter] 62 62 Pulse Rate [Right Pulse Oximeter] Pulse Rate [orthos tatic lying Right Pulse Oximeter] Pulse Rate [orthos tatic sitting Righ t Pulse Oximeter] Respiratory Rate Blood Pressure Blood Pressure [Le ft Arm] 135/89 Blood Pressure [Ri ght Upper Arm] Blood Pressure [or thostatic lying Le ft Arm] Blood Pressure [or thostatic sitting Left Arm] Blood Pressure [or thostatic standing Left Arm] Pulse Oximetry 95 Oxygen Delivery Me thod Room Air 01/09/23 09:00 Temperature Pulse Rate Pulse Rate [Left P ulse Oximeter] Pulse Rate [Right Pulse Oximeter] Pulse Rate [orthos tatic lying Right Pulse Oximeter] Pulse Rate [orthos tatic sitting Righ t Pulse Oximeter] Respiratory Rate 16 Blood Pressure Blood Pressure [Le ft Arm] Blood Pressure [Ri ght Upper Arm] Blood Pressure [or thostatic lying Le ft Arm] Blood Pressure [or thostatic sitting Left Arm] Blood Pressure [or thostatic standing Left Arm] Pulse Oximetry 95 Oxygen Delivery Me thod Room Air DS: Data Data Completed and Pending Labs on day of discharge: Labs from last 24 hours 01/09/23 01/08/23 01/08/23 06:08 16:00 14:43 WBC RBC Hgb Hct MCV MCH MCHC RDW Coeff of Adilson Plt Count Neut % (Auto) Lymph % (Auto) Roberts % (Auto) Eos % (Auto) Baso % (Auto) Neut # (Auto) Lymph # (Auto) Roberts # (Auto) Eos # (Auto) Baso # (Auto) ESR Sodium 136 Potassium 4.1 Chloride 97 Carbon Dioxide 34 H BUN 16 Creatinine 0.8 Estimated Creat Clear 76.54 Estimated GFR 90 Glucose 122 H Hemoglobin A1c Calcium 9.8 Magnesium 1.9 Total Bilirubin 1.8 H Direct Bilirubin 0.3 GGT 125 H AST 131 H ALT 139 H Alkaline Phosphatase 66 Troponin I < 0.01 L C-Reactive Protein NT-Pro-B Natriuret Pep 203 Total Protein 8.3 Albumin 4.5 Urine Color Yellow Urine Appearance Clear Urine pH 7.0 Ur Specific Allen 1.010 Urine Protein Negative Urine Glucose (UA) Negative Urine Ketones Negative Urine Blood Trace-intact A Urine Nitrite Negative Urine Bilirubin Negative Urine Urobilinogen 0.2 Ur Leukocyte Esterase Negative Urine RBC 0-2 Urine WBC 0-2 Ur Squamous Epith Cells Few Urine Bacteria Few A Urine Opiates Screen Negative Ur Oxycodone Screen Negative Urine Methadone Screen Negative Ur Propoxyphene Screen Negative Ur Barbiturates Screen Negative U Tricyclic Antidepress Negative Ur Phencyclidine Scrn Negative Ur Amphetamines Screen Negative U Methamphetamines Scrn Negative U Benzodiazepines Scrn Negative Urine Cocaine Screen Negative U Marijuana (THC) Screen Negative Ur Drug Screen Comment See Note SARS-CoV-2 (PCR) POC Troponin I 01/08/23 01/08/23 01/08/23 13:21 13:12 11:21 WBC 8.13 RBC 4.19 Hgb 13.3 Hct 38.6 MCV 92 MCH 32 MCHC 35 RDW Coeff of Adilson 11.8 Plt Count 248 Neut % (Auto) 58.9 Lymph % (Auto) 28.7 Roberts % (Auto) 10.7 Eos % (Auto) 1.2 Baso % (Auto) 0.4 Neut # (Auto) 4.79 Lymph # (Auto) 2.33 Roberts # (Auto) 0.90 Eos # (Auto) 0.10 Baso # (Auto) 0.03 ESR 25 H Sodium 135 Potassium 4.1 Chloride 97 Carbon Dioxide 32 BUN 18 Creatinine 0.8 Estimated Creat Clear 76.54 Estimated GFR 90 Glucose 107 Hemoglobin A1c 5.44 Calcium 9.8 Magnesium 1.7 Total Bilirubin 1.6 H Direct Bilirubin GGT 134 H AST 97 H ALT 135 H Alkaline Phosphatase 73 Troponin I C-Reactive Protein < 0.5 L NT-Pro-B Natriuret Pep 48 Total Protein 8.5 H Albumin 4.7 Urine Color Urine Appearance Urine pH Ur Specific Allen Urine Protein Urine Glucose (UA) Urine Ketones Urine Blood Urine Nitrite Urine Bilirubin Urine Urobilinogen Ur Leukocyte Esterase Urine RBC Urine WBC Ur Squamous Epith Cells Urine Bacteria Urine Opiates Screen Ur Oxycodone Screen Urine Methadone Screen Ur Propoxyphene Screen Ur Barbiturates Screen U Tricyclic Antidepress Ur Phencyclidine Scrn Ur Amphetamines Screen U Methamphetamines Scrn U Benzodiazepines Scrn Urine Cocaine Screen U Marijuana (THC) Screen Ur Drug Screen Comment SARS-CoV-2 (PCR) Negative SARS-CoV-2 POC Troponin I 0.00 L 01/08/23 10:53 WBC RBC Hgb Hct MCV MCH MCHC RDW Coeff of Adilson Plt Count Neut % (Auto) Lymph % (Auto) Roberts % (Auto) Eos % (Auto) Baso % (Auto) Neut # (Auto) Lymph # (Auto) Roberts # (Auto) Eos # (Auto) Baso # (Auto) ESR Sodium Potassium Chloride Carbon Dioxide BUN Creatinine Estimated Creat Clear Estimated GFR Glucose Hemoglobin A1c Calcium Magnesium Total Bilirubin Direct Bilirubin GGT AST ALT Alkaline Phosphatase Troponin I C-Reactive Protein NT-Pro-B Natriuret Pep Total Protein Albumin Urine Color Urine Appearance Urine pH Ur Specific Allen Urine Protein Urine Glucose (UA) Urine Ketones Urine Blood Urine Nitrite Urine Bilirubin Urine Urobilinogen Ur Leukocyte Esterase Urine RBC Urine WBC Ur Squamous Epith Cells Urine Bacteria Urine Opiates Screen Ur Oxycodone Screen Urine Methadone Screen Ur Propoxyphene Screen Ur Barbiturates Screen U Tricyclic Antidepress Ur Phencyclidine Scrn Ur Amphetamines Screen U Methamphetamines Scrn U Benzodiazepines Scrn Urine Cocaine Screen U Marijuana (THC) Screen Ur Drug Screen Comment SARS-CoV-2 (PCR) POC Troponin I 0.00 L Discharge Plan Discharge Disposition: Home, Self-Care Date of Admission: 01/08/23 13:59 Attending Physician on Admission: Herminia Perez Primary Care Provider: Keyana Alcazar Condition: Unchanged Anticipated Discharge Date/Time: 01/09/23 09:58 Discharge Medications: New nicotine (polacrilex) 2 mg Gum 2 mg buccal Q1H PRNQty: 20 11RF fluticasone propionate 50 mcg/actuation [place],Suspension 1 spray intranasal DAILY Qty: 1 0RF [place] Nasal 0.65 % Aerosol,[place] 1 spray intranasal QID Qty: 1 0RF Continued metoprolol tartrate 50 mg tablet 25 mg PO BID Patient Comments: TAKE 1/2 (ONE-HALF) TABLET BY MOUTH TWICE DAILY cefuroxime axetil 500 mg tablet 500 mg PO BID 10 Days Qty: 20 0RF losartan 50 mg tablet 50 mg PO BID hydrochlorothiazide 25 mg tablet 25 mg PO DAILY aspirin [Adult Aspirin Regimen] 81 mg tablet,delayed release (DR/EC) 81 mg PO DAILY multivitamin [Daily Multi-Vitamin] Tablet 1 tab PO DAILY Discontinued prednisone 20 mg tablet 20 mg PO BID Qty: 10 0RF Discharge Orders: Discharge Order (Routine); Ordered 01/09/23 Ordered By: Herminia Perez Additional Instructions: 1. Turn your telemetry in as intructed. 2. Meet with cardiology regarding your monitor, symptoms and hospital stay. 3. Meet with ENT regarding chronic sinusitis 4. Continue nasal saline spray, followed by Flonase (nasal steroid) daily. Try a neti-pot (this was not prescribed to pharmacy - not covered) 5. Track your blood pressure and pulse daily and write it down (or put in phone damien) 6. STOP SMOKING! You can do it! Activity Level: Activity as Tolerated Discharge Diet: Heart Healthy (2 gm sodium, low fat) Follow Up Appointments: [facility] [Provider Group] - 01/27/23 (f/u hospitalization for PVCs and bigemny. Holter review needed. -any provider at [facility] Jiar King MD [Staff Physician] - 01/23/23 (chronic sinusitis) Keyana Alcazar DO [Primary Care Provider] - 01/30/23 (f/u if needed based on ENT and cardiology evaluations (let patient make this appointment)) Forms: Work/School Release, Singular Info Instructions Hospital Course: HOSPITALIST DISCHARGE SUMMARY ATTENDING PHYSICIAN: Herminia Perez MD FINAL DIAGNOSIS: PVC, symptomatic Bigeminy noted briefly Tobacco dependence Chronic hypertension Fatty liver Pansinusitis HOSPITAL FOLLOWUP ISSUES: 1. Cardiology - Holter monitor placed during admission and will run 48 hours. [facility] to read and see patient at follow-up 2. ENT - continue nasal irrigation, nasal steroid. Follow-up ENT appointment m wilner 3. Tobacco dependence - counseling given REFERRALS WHILE ADMITTED: None REFERRALS AFTER DISCHARGE: Cardiology, ENT BRIEF HOSPITAL COURSE: Lavern is a 47-year-old with a history of chronic hypertension, tobacco dependence. She was admitted with symptomatic PVCs and a run of bigeminy in the ED. Overnight observation was completed. No further bigeminy noted. Her PVC burden is quite high, symptomatic at times. About every 5th to 7th beat. Echocardiogram was reassuring. We replaced her magnesium which was only low normal. Her thyroid is normal. I did not change any of her chronic hypertension meds. We will have her complete a Holter monitor and follow-up with cardiology as an outpatient. Other lab surveillance was reassuring. I stressed the importance of tobacco cessation, regular low-impact exercise like walking, plenty of fruits and vegetables. SUBSTANTIVE NOTATIONS ON IMAGING, LAB, MICROBIOLOGY/PATHOLOGY STUDIES: 135/89. Pulse 62. Rest per 16. Afebrile. 95% on room air. CBC unremarkable. Chemistries are unremarkable other than a fatty liver pattern in her LFTs A1c 5.4 Drug screen negative Troponin negative Ultrasound of her abdomen -status post cholecystectomy. Fatty liver. Head CT: No acute intracranial hemorrhage or mass. Pansinus disease. Echocardiogram: Normal LV size, normal wall thickness. EF 79%. DISCHARGE MEDICATIONS: See Reconciled list - SIGNIFICANT CHANGES: No changes to hypertensive regimen Continue antibiotic as previously started Nasal saline a nasal steroid ordered REVIEW OF SYSTEMS No new chest pain or dyspnea Pain controlled No voiding difficulties Tolerating diet challenge PHYSICAL EXAM: CONSTITUTIONAL: Alert. Comfortable. VITAL SIGNS: see record. HEENT: Normocephalic, atraumatic. PERRL, EOMI, conjunctivae pink, no scleral icterus. Ears and nose externally normal. Pharynx normal. NECK: No JVD. No carotid bruit, no thyromegaly, no adenopathy. CHEST: Clear to auscultation bilaterally. HEART: S1 and S2 normal. Edema ABDOMEN: Soft, nontender. Normal bowel sounds. MUSCULOSKELETAL: No gross joint deformity or swelling. NEURO: Cranial nerves intact. Grossly intact. No asymmetric findings. SKIN: No rashes, petechiae, concerning changes PSYCHIATRIC: Mood euthymic. DISPOSITION: Home with family Time spent on discharge 37 minutes.
--- NOTE | 2023-01-09 11:57 | PC.NURSE ---
D/C: Patient A&O. Ind in room. Denies chest pain and SOB. Tolerating meals. Denies nausea. D/c instructions given verbally to pt and and written copy sent home with pt. All questions answered. IV removed with tip intact. D/c at 1148.
== END 2023-01-09 11:48 | disposition home or self-care (01) ==
LOC: ED 13:50 → MEDSURG 14:00
PROVIDERS: Admitting Provider Family Medicine; Emergency Provider Family Medicine; PCP Family Medicine; Visit Provider Family Medicine
DX: I49.3 Ventricular premature depolarization (principal); J01.40 Acute pansinusitis, unspecified; R74.01 Elevation of levels of liver transaminase levels; E80.7 Disorder of bilirubin metabolism, unspecified; K76.0 Fatty (change of) liver, not elsewhere classified; R00.2 Palpitations; R00.9 Unspecified abnormalities of heart beat; R53.81 Other malaise; I10 Essential (primary) hypertension; F17.200 Nicotine dependence, unspecified, uncomplicated; Z71.6 Tobacco abuse counseling; Z79.82 Long term (current) use of aspirin; R51.9 Headache, unspecified; Z98.82 Breast implant status; Z98.51 Tubal ligation status; Z90.710 Acquired absence of both cervix and uterus; Z90.49 Acquired absence of other specified parts of digestive tract; Z98.891 History of uterine scar from previous surgery; Z98.890 Other specified postprocedural states; Z20.822 Contact with and (suspected) exposure to COVID-19
CPT/HCPCS: 36415; 70450; 71045; 76705; 80048; 80053; 80076; 80306; 81001; 82977; 83036; 83735; 83880; 84484; 85025; 85651; 86140; 87086; 87635; 93005; 93306; 94761; 96365; 96366; 99285; G0378; A9153; A9270; J3475

== ENCOUNTER 2023-02-04 19:26 | Outpatient (CLI) | payer OTHER, SELFPAY ==
--- NOTE | 2023-02-11 08:51 | W.PM.SLEEP ---
Sleep Study Details Details Interpreting Provider: Blu Date of Sleep Study: 02/04/23 Sleep Study Details: STUDY TYPE:? Home ? BMI:? Not recorded ORDERING PROVIDER:? Blu INDICATION:? Concerns about sleep apnea ? SLEEP SUMMARY:? 473 minutes monitored RESPIRATORY SUMMARY:? AHI 6.6, supine 5.2, left lateral 7.9, right lateral 7.1 Low oxygen 80 2.3% of study oxygen less than 90% Snoring 0.2% PERIODIC LIMB MOVEMENTS OF SLEEP:? Not recorded CARDIAC:? Range 51-90, mean 58.6 IMPRESSION:? Mild obstructive sleep apnea with minimal positional variation RECOMMENDATION: If the patient is symptomatic treatment could consist of AutoSet CPAP, dental appliance and/or airway expansion surgery.
== END 2023-02-04 19:27 | disposition home or self-care (01) ==
LOC: SLEEP 19:26
PROVIDERS: PCP Family Medicine; Visit Provider Otolaryngology
DX: G47.33 Obstructive sleep apnea (adult) (pediatric) (principal)
CPT/HCPCS: 95806